=== PATIENT | male | born 1980 | race Caucasian/White ===

== ENCOUNTER 2022-02-13 08:00 | Outpatient (CLI) | payer OTHER | END 2022-02-13 23:59 | disposition home or self-care (01) | LOC: LAB.N 08:00 | PROVIDERS: ATTEND Physician Assistant Medical | DX: U07.1 COVID-19 (principal) ==

== ENCOUNTER 2022-06-19 07:38 | Outpatient (CLI) | payer OTHER ==
--- NOTE | 2022-06-19 13:56 | MRI Report ---
PROCEDURE: Lumbar Spine W/O INDICATIONS: LOW BACK PAIN TECHNIQUE: Noncontrast sagittal T1 spin echo and T2 fast echo, sagittal STIR, axial T1 and T2 fast spin echo thr ough the lumbar spine. In cases with scoliosis, additional coronal T2 fast spin echo may be performe d. COMPARISON: None. FINDINGS: Image quality: Excellent. Alignment and Curvature: There is normal bony alignment. Bone Marrow: Marrow is of normal overall signal. No acute vertebral body compression fractures. Spinal Cord: Conus medullaris terminates at the T12 level. Visualized cord demonstrates normal sign al and size. Paraspinous Soft Tissues: No paravertebral masses. T12-L1: Normal in appearance. L1-L2: Mild disc desiccation. No canal stenosis. No foraminal stenosis. L2-L3: Mild disc desiccation. No canal stenosis. No foraminal stenosis. L3-L4: Mild disc desiccation. Mild facet and ligamentum flavum hypertrophy. No canal stenosis. Mild bilateral foraminal stenosis. L4-L5: Mild disc desiccation and height loss. Mild facet and ligamentum flavum hypertrophy. No keshav l stenosis. Mild bilateral foraminal stenosis. L5-S1: No canal stenosis. Mild bilateral foraminal narrowing. There is a small posterior focal hig h intensity zone. IMPRESSION: 1. Mild disc desiccation and height loss most notable at L3-4 and L4-5. No significant canal stenosis or foraminal narrowing of the lumbar spine. 2. 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 Reviewed by: Mary Kate Fitzpatrick MD on 06/19/2022 1:55 PM PDT Approved by: Mary Kate Fitzpatrick MD on 06/19/2022 1:55 PM PDT Station ID: [id number]
== END 2022-06-19 07:39 | disposition home or self-care (01) ==
LOC: DI 07:38
PROVIDERS: ATTEND Internal Medicine
DX: M47.816 Spondylosis without myelopathy or radiculopathy, lumbar region (principal); M51.36 Other intervertebral disc degeneration, lumbar region; M48.061 Spinal stenosis, lumbar region without neurogenic claudication

== ENCOUNTER 2024-01-15 15:30 | Outpatient (CLI) | payer OTHER ==
--- NOTE | 2024-01-15 17:28 | XRAY Report ---
PROCEDURE: Chest 2V INDICATIONS: ACUTE COUGH TECHNIQUE: 2 views of the chest were acquired. COMPARISON: None. FINDINGS: Surgical changes and devices: None. Lungs and pleura: No pleural effusions or pneumothorax. Lungs are clear. Mediastinum: Mediastinal contours appear normal. Heart size is normal. Bones and chest wall: No suspicious bony lesions. Overlying soft tissues appear unremarkable. IMPRESSION: No acute cardiopulmonary process. Reviewed by: Jose Liu MD on 01/15/2024 5:27 PM PDT Approved by: Jose Liu MD on 01/15/2024 5:27 PM PDT Station ID: [id number]
== END 2024-01-15 15:45 | disposition home or self-care (01) ==
LOC: DI.N 15:30
PROVIDERS: ATTEND Physician Assistant Medical
DX: R05.1 Acute cough (principal)